=== PATIENT | male | born 2000 | race Caucasian/White ===

== ENCOUNTER 2020-03-31 13:20 | Outpatient (CLI) | payer BC ==
[2020-03-31 14:47] LABS: #Eosinphils 0.1 10x3/uL (0.0-0.5); #Monocytes 0.4 10x3/uL (0.0-1.1); #Neutrophils 2.8 10x3/uL (1.5-8.4); %Basophils 0.8 % (0.0-2.0); %Eosinophils 1.4 % (0.0-6.0); %Lymphocytes 32.5 % (18.0-47.0); %Monocytes 7.8 % (0.0-10.0); %Neutrophils 57.3 % (40.0-75.0); Hemoglobin 16.7 g/dL (14.0-18.0); Mean Corpuscular HGB CONC 34.6 G/DL (32.0-36.0); Mean Corpuscular Hemoglobin 31.9 PG (27.0-33.0); Mean Corpuscular Volume 92.2 fl (80.0-100.0); Mean Platelet Volume 10.5 fl (7.4-10.4); Platelet Count 212 10x3/uL (130-400); RBC Distribution Width 11.4 % (11.5-14.5); Red Blood Cell (RBC) Count 5.23 10x6/uL (4.40-5.80); White Blood Cell (WBC) Count 4.9 10x3/uL (4.5-11.0)
[2020-03-31 14:55] LABS: Anion Gap 14 mmol/L (10-20); BUN (Urea Nitrogen) 23 mg/dL (8.9-20.6); Calc. Creatinine Clearance 0 mL/min (70-130); Calcium 9.6 mg/dL (7.8-10.44); Carbon Dioxide 27 mmol/L (22-29); Chloride 102 mmol/L (98-107); Glucose 68 mg/dL (70-105); Potassium 4.7 mmol/L (3.5-5.1); Sodium 138 mmol/L (136-145)
[2020-04-01 02:59] LABS: SARS-CoV-2 MS2 Positive; SARS-CoV-2 N Gene Negative; SARS-CoV-2 S Gene Negative; SARS-CoV-2 by NAA Not Detected (NotDetected); SARS-CoV-2 orf1ab Negative
== END 2020-03-31 13:21 | disposition home or self-care (01) ==
LOC: LABBT 13:20
PROVIDERS: ATTEND Specialist
DX: Z01.812 Encounter for preprocedural laboratory examination (principal); K40.90 Unilateral inguinal hernia, without obstruction or gangrene, not specified as recurrent; Z20.828 Contact with and (suspected) exposure to other viral communicable diseases
CPT/HCPCS: 80048; 85025; 87635; U0003

== ENCOUNTER 2020-04-03 11:05 | Day surgery (SDC) | payer BC ==
[2020-04-02 11:38] VITALS: BMI 21.7
[~2020-04-03 11:05] MED LIST: Glycopyrrolate 0.2 MG/ML 5 ML SYRINGE ONE; Lidocaine 1% PF 5 ML VIAL ONE; Ondansetron PF 4 MG/2 ML Vial ONE; PROPOFOL 200 MG/20 ML VIAL ONE; Rocuronium Bromide 10 MG/ML (10ML VIAL) ONE
[2020-04-03] MEDS ORDERED: Ketorolac Tromethamine 30 MG/ML VIAL ONE (11:19)
[2020-04-03] MEDS ORDERED: Acetaminophen 500 MG TAB ONE (11:19)
[2020-04-03] MEDS ORDERED: Lidocaine 1% w/Epinephrine 1:100K 20 ML VIAL ONE (12:22)
[2020-04-03] MEDS ORDERED: Bupivacaine PF 0.5% 30 ML VIAL ONE (12:22)
[2020-04-03] MEDS ORDERED: Midazolam HCl 2 mg/2 ml Vial ONE ×2 (12:39→12:52)
[2020-04-03] MEDS ORDERED: Fentanyl 100 MCG/2 ML VIAL ONE (12:52)
[2020-04-03] MEDS ORDERED: HYDROcodone/Acetaminophen 5/325 mg Tablet ONE ×2 (16:26→17:06)
--- NOTE | 2020-04-04 00:22 | OP ---
DATE OF PROCEDURE: 04/03/2020 PREOPERATIVE DIAGNOSIS: Right inguinal hernia. POSTOPERATIVE DIAGNOSIS: Right inguinal hernia, indirect. PROCEDURE PERFORMED: Robotic right inguinal hernia repair with large 3DMax mesh patch. ANESTHESIA: General endotracheal with local using a mixture of 1% lidocaine with epinephrine 0.25% Marcaine. INDICATIONS: Patient is a 19-year-old white male, who presents with an obvious right inguinal hernia. He has taken to the operating room at this time for repair. DESCRIPTION OF OPERATION: Informed consent was obtained. He was taken to the operating room, where general endotracheal anesthesia was obtained with patient in supine position. A Mayberry catheter was placed, abdomen was prepped with ChloraPrep and draped in sterile fashion. Local anesthetic was infiltrated and transverse supraumbilical incision was created through which a Veress needle was passed in the peritoneal cavity and pneumoperitoneum established using carbon dioxide up to pressure of 15 mmHg. An 11 mm trocar port was passed through the same incision and robotic camera was passed this port. Under direct vision, two 8 mm robotic ports were placed on either side of midline at the supraumbilical level. The robot was docked to these 3 ports and to the camera and the operation was continued from the robotic console. Examination within the abdomen revealed an obvious, fairly large indirect right inguinal hernia. There was no evidence of left inguinal hernia, although there maybe some early weakness at that location. A transverse peritoneal incision was created several centimeters above the obvious hernia defect on the right. Dissection was carried in the preperitoneal plane inferiorly. On the medial aspect, I identified the pubic tubercle. On the lateral aspect, the iliopubic tract was carefully dissected. In the central portion of the dissection, there was an obvious indirect hernia protruding along the spermatic cord. I performed a relatively lengthy tedious dissection to dissect the hernia sac off the associated cord structures. This is a long thin sac that extended several centimeters through the internal ring. Careful dissection was done, dissected off the cord structures. The hernia sac was then everted through the peritoneum. Hemostasis was meticulous following the dissection. A large 3DMax mesh patch was obtained, placed within the preperitoneal space and secured in place with 2 interrupted sutures of 2-0 Vicryl, placing one to the pubic tubercle and one to the anterior abdominal wall just lateral to the epigastric vessels. The peritoneum was then closed with a running suture of 3-0 Stratafix. The fascial defect at the supraumbilical port was closed with 0 Vicryl suture using a GraNee needle. All ports and instruments were removed under direct vision. Pneumoperitoneum was carefully evacuated. 0.25% Marcaine with epinephrine was infiltrated in each port site. Skin edges approximated with 4-0 Monocryl subcuticular suture. Dermabond was placed externally. There were no complications. The patient tolerated the procedure well and was taken to recovery room in stable condition. Job ID: [id number]
== END 2020-04-03 17:45 | disposition home or self-care (01) ==
LOC: SDC 11:05
PROVIDERS: ATTEND Specialist
PROC: 0YU54JZ Supplement Right Inguinal Region with Synthetic Substitute, Percutaneous Endoscopic Approach (ICD-10-PCS; principal; 2020-04-03)
DX: K40.90 Unilateral inguinal hernia, without obstruction or gangrene, not specified as recurrent (principal); Z88.1 Allergy status to other antibiotic agents; Z91.013 Allergy to seafood
CPT/HCPCS: C1781; J0690; J1885; J2250; J2405; J2704; J3010; S0020

== ENCOUNTER → 2020-04-04 | Day surgery (SDC) | payer BC | LOC: EDSTATUS 15:56 → SDC/OP 16:38 → ERS 16:38 → SDC/OP 16:38 | DX: N50.819 Testicular pain, unspecified (principal); Z91.013 Allergy to seafood; Z91.041 Radiographic dye allergy status ==